=== PATIENT | male | born 1950 | race Caucasian/White ===

== ENCOUNTER → 2024-02-24 15:45 | Outpatient (CLI) | payer MEDICARE, SELFPAY | PROVIDERS: PCP Internal Medicine; Referring Provider Specialist; Visit Provider Specialist | DX: R97.20 Elevated prostate specific antigen [PSA] (principal) | CPT/HCPCS: 84153 ==

== ENCOUNTER → 2024-02-29 15:37 | Outpatient (CLI) | payer MEDICARE, SELFPAY | PROVIDERS: PCP Internal Medicine; Visit Provider Specialist | DX: N40.1 Benign prostatic hyperplasia with lower urinary tract symptoms (principal); N13.8 Other obstructive and reflux uropathy; R33.9 Retention of urine, unspecified; Z87.440 Personal history of urinary (tract) infections | CPT/HCPCS: 52000; 87086; 99215 ==

== ENCOUNTER → 2024-04-06 10:31 | Outpatient (CLI) | payer MEDICARE, SELFPAY | PROVIDERS: PCP Internal Medicine; Visit Provider Specialist | DX: Z87.440 Personal history of urinary (tract) infections (principal) | CPT/HCPCS: 87077; 87086 ==

== ENCOUNTER 2024-04-17 13:49 | Day surgery (SDC) | payer MEDICARE, SELFPAY ==
[2024-03-14 08:12] VITALS: BMI 34.4
[2024-04-17] VITALS (15 sets, daily range): BP systolic 69–132; BP diastolic 43–82; PULSE 65–91; RESP 10–19; TEMP 35.7–36.9; O2SAT 92–97; BMI 34.4
--- NOTE | 2024-04-17 | PATH_ITS ---
[facility] Accession Number: [id number] No. of containers..01 Tissue . 01 Material submitted: . prostate - PROSTATE CHIPS . 01 Diagnosis: A. PROSTATE CHIPS, EXCISIONAL BIOPSY: Benign prostatic stroma with benign epithelium and mild to moderate acute and chronic inflammation. MRV 04/24/2024 1347 Local . 01 Electronically signed: . Amparo Worthington MD, Pathologist NPI- [id number] . 01 Gross description: . Received in formalin with two identifiers and prostate chips, are multiple soares to rubbery soft tissue fragments admixed with hemorrhagic material weighing 29 grams and aggregating to 10.1 x 8.3 x 1.6 cm. No distinct lesions are identified. Vision Impaired Teacher sections are submitted in A1-A10. ([id number]) /MRV 04/19/2024 1845 Local . 01 Pathologist provided ICD-10: N40.1 . 01 CPT . 391960 Specimen Comment: A courtesy copy of this report has been sent to [phone] Performed at: [address] [address], [place], [place] [id number] MD Stevenson Mann MD Phone: [phone]
--- NOTE | 2024-04-17 14:36 | PM.PREOP ---
Pre-operative Note Interval Note History & Physical reviewed/Exam performed by Physician: Yes Changes to H&P: No
[2024-04-17] MEDS: AMPICILLIN/SULBACTAM 3 GM 3 GM in SODIUM CHLORIDE 0.9% 100 ML IV (15:00)
[2024-04-17] MEDS: GENTAMICIN 400 MG in SODIUM CHLORIDE 0.9% 100 ML 110 MG IV (15:05)
[2024-04-17 15:08] LABS: Hematocrit 41.8 % (41-53); Hemoglobin 13.9 g/dL (13.5-17.5)
[2024-04-17] MEDS: ACETAMINOPHEN IV 1,000 MG/100 ML VIAL 400 MG IV (15:13)
--- NOTE | 2024-04-17 15:19 | SUR.OPER ---
Lithotomy on padded OR bed, head on pillow, right arms secured on padded arm board at <90 degrees abduction, right arm padded and tucked. Legs secured in padded yellow fins stirrups.
[2024-04-17] MEDS: TRANEXAMIC ACID 1,000 MG in SODIUM CHLORIDE 0.9% 100 ML 200 MG IV ×2 (15:47→17:18)
--- NOTE | 2024-04-17 17:40 | P.OP_ITS ---
Operative Date/Time/Diagnoses Date of procedure: 04/17/24 Time of procedure: 17:40 Pre-op diagnosis: 1. Urinary retention. 2. BPH. 3. Failure of medical therapy and multiple voiding trials. Post-op diagnosis: same Procedure & Clinicians Procedure: 1. Cystoscopy/Aquablation. 2. Cystoscopy/Transurethral resection of prostate. 3. Transrectal ultrasound-diagnostic and guidance. A complexity modifier should be added to all aspects of this case due to the need for extended Transurethral resection of residual median lobe and elevated median bar of the prostate. Same procedure as scheduled: Yes Indications: 1. Urinary retention. 2. BPH. 3. Failure of medical therapy and multiple voiding trial attempts. Surgeon: Chris Rhodes Click Yes if Unassisted: Yes Anesthesia Type: General Operative Notes Findings: Unchanged compared to preoperative cystoscopy. Closure Type: not applicable Specimen(s): other (Prostate chips.) Applied: catheter (Twenty-four Citizen [place] 3 way hematuria catheter to sterile normal saline continuous bladder irrigation.) Estimated Blood Loss (mL): 50 Blood products transfused: none Procedure in detail: The patient was positioned supine and administered general anesthesia. The lower abdomen, genitalia, and groin were then prepped and draped in sterile fashion. The transrectal ultrasound probe was passed into the rectum and was adjusted and positioned for optimum visualization of the lower genitourinary tract. The hand piece with interval cystoscopy was then passed into the urethra and advanced proximally under direct and ultrasonographic guidance. The hand piece was positioned parallel and true with the transrectal ultrasound probe. Next utilizing both transverse and sagittal imaging and alternating between the 2 tony, jet location was identified and calibrated at the 3, 6, and 9 positions. Treatment depth cursors were then evaluated and established at the 3, 6, and 9 position in the transverse plane at the midpoint and wide as circumference diameter of the prostate near its midpoint. Next, in sagittal plane, critical anatomic locations were identified at the very proximal median lobe (extremely large volume median lobe protruding intravesically), bladder neck, mid prostate, and as far distal as the technology would allow (7 cm. This left an additional 1+ cm between the verumontanum in the external sphincter that would be untreated laterally. Aquablation was then commenced beginning at the proximal most intravesical median lobe and continuing through the program. A 2nd pass was then conducted after minor adjustments at 1, 2, 3, 4, and 5 positions in the sagittal midline plane. The the Aquablation Wand and handpiece were then removed. A transrectal ultrasound probe required removal in order to advance the resectoscope and under direct visualization. It was then realized in discovered that much of the median lobe had been directed leftward and remained on treated. At this point it was decided to conduct an extensive Transurethral resection of the remaining median lobe and proximal prostatic fossa. The mid and more distal portions of the prostate appeared to have good treatment effect from Aquablation and were left undisturbed. Resection was meticulous and painstaking. All tissue fragments and clot were then collected and submitted to pathology for routine gross and microscopic examination. The bladder was then partially filled the resectoscope was removed. A 24 Citizen [place] three-way hematuria catheter was then it positioned in the bladder with the assistance of a malleable catheter guide. The balloon was then inflated to 45 cc. Catheter was then hand irrigated with a catheter tip syringe to clarity. It was then connected to sterile normal saline CBI and gravity outflow drainage. The patient was then repositioned in supine in the catheter was secured to the inner thigh without tension. The patient was then awakened, transferred to [facility], then transferred to recovery in stable condition. Complications: none Post-operative Condition: stable Disposition: PACU Plan for aftercare: Admit to acute care.
[2024-04-17] MEDS: ePHEDrine 50 MG/ML VIAL 10 MG IV (18:16)
[2024-04-17] MEDS: LACTATED RINGERS 1,000 ML 125 ML IV (19:13)
--- NOTE | 2024-04-17 19:23 | PC.NURSE ---
Patient brought up from PACU to room 222, oriented to call light. Jayashree at bedside. Patient denies pain, states there is maybe a 1 discomfort at catheter site. CBI in progress from PACU, urine draining grade 2. Report given to glass cutter hand.
[2024-04-17 19:25] LABS: Alanine Aminotransferase 22 IU/L (<50); Albumin 3.4 g/dL (3.5-5.0); Albumin Globulin Ratio 1.3 (1.0-2.8); Alkaline Phosphatase 98 U/L (38-126); Aspartate Aminotransferase 25 IU/L (17-59); BUN Creatinine Ratio 18.8 (6-22); Bilirubin Total 0.6 mg/dL (0.2-1.3); Blood Urea Nitrogen 19 mg/dL (9-20); Calcium 8.1 mg/dL (8.4-10.2); Carbon Dioxide 27 mmol/L (22-32); Chloride 106 mmol/L (98-107); Estimated Glomerular Filt Rate > 60 mL/min (>60); Globulin 2.6 g/dL (1.7-4.1); Glucose 117 mg/dL (80-110); HEMOLYSIS < 15 (0-50); Potassium 4.6 mmol/L (3.4-5.1); Sodium 135 mmol/L (137-145)
[2024-04-17] MEDS: ACETAMINOPHEN 325 MG TABLET 650 MG PO (21:24)
[2024-04-18] MEDS: OXYCODONE IR 5 MG TABLET PO (02:38)
[2024-04-18 03:00] VITALS: BP 97/56; PULSE 65; RESP 16; TEMP 36.8; O2SAT 94
--- NOTE | 2024-04-18 08:34 | PC.NURSE ---
Addendum entered by Reese Paz R.N. 04/18/24 15:06: Patient tolerated ambulation well, with hernandez intact and draining. Patient is comfortable managing hernandez at home. Discharge instructions reviewed with patient and he has no further questions or concerns at this time. IV dc'd intact and patient escorted out via wc to home with his . Patient to schedule follow up with Dr. Rhodes's office. Original Note: Patient seen by Dr. Rhodes this morning, CBI stopped/plugged. Patient up to chair to have his breakfast. Encourage increased po intake, and ambulation this morning. Continue to monitor.
[2024-04-18] MEDS: ATORVASTATIN 20 MG TABLET 40 MG PO (09:17)
[2024-04-18] MEDS: TAMSULOSIN 0.4 MG CAPSULE PO (09:17)
[2024-04-18] MEDS: FINASTERIDE 5 MG TABLET PO (09:17)
[2024-04-18] MEDS: MULTIVITAMIN 1 TABLET 1 TAB PO (09:17)
[2024-04-18 09:18] VITALS: BP 92/64; PULSE 74
--- NOTE | 2024-04-18 10:39 | DIET.CONS ---
Dietary Consultation Note Admission Date: Assessment: 73 y M admitted after cystoscopy. Nutrition consulted for recent weight loss. Met w/ pt at bedside who reports 9-7 lb weight loss in 1 month (3%, non-severe) that he contributes to fluid loss after removal of gallbladder 1 month ago. Weight has remained stable at 211-213 lb past 2-3 weeks. Reports reduced intake of 1/2 to 3/4 the amount he would normally eat. Has been avoiding high fat foods per recc from doctor after cholecystectomy. Reports goal weight below 200 lb. Nutrition focused physical exam performed with no results. Areas assessed: temporalis, buccal/orbital fat pads, triceps, clavicle and scapula region, interosseous. Current diet recall: B-latte, breakfast burrito L-meat, carb, veg/stew D-sandwich and/or salad Ht: 170.18 cm Wt: 99.79 kg BMI: 34.4 UBW: 99.79 kg per pt 1 month ago, reports now 97.069 kg (-3%, non-severe) Last BM: () MNA: 11 Jorge Alberto Score: 22 Diet: 04/18/24 Breakfast General (Regular) Diet Diet Modifications: Food Texture: Level 7 - Regular Liquid Consistency: Level 0 - Thin Labs: Hgb 13.9 g/dL (13.5-17.5) 04/17/24 14:39 Hct 41.8 % (41-53) 04/17/24 14:39 Creatinine 1.01 mg/dL (0.66-1.25) 04/17/24 18:50 Nutrition Diagnosis: - Interventions: 1. Encouraged adequate intake, protein based snacks to support adequate intake prn EER: [id number] kcals (20-22 kcals per BMI) 80 g protein (1 g/kg of adjusted IBW) Monitoring/Evaluations: po intakes Electronically Signed by: Sandi Robles 04/18/24 10:39 Clinical Dietitian [address] [address]
--- NOTE | 2024-04-18 11:20 | CM.DANOTE ---
DCP Assessment Note Pt is a 73yo M here following Cystoscopy/Aquablation with Dr. Rhodes on 04.17.24. Pt is POD1. PCP Dr. Izaguirre [facility] and Medicare FLAME GOUGER reviewed EMR. Per RN report, no anticipated/obvious CM needs. FLAME GOUGER entered room and introduced self and role. Pt lives in [place] with spouse Jayashree ([phone]). Pt has been OOB ambulating halls with the POLYSOM TECH and is normally active/indep/drives at baseline, has been putting in a new patio in his backyard. Pt reports Meagan told him likely dc later this afternoon. on way now to assist with transport. Pt denies and CM/DCP/SW needs at this time. P: anticipate dc later today with spouse support and no CM needs. CM team will follow as needed. KALYAN Tobar Discharge Planning/Care Management CM Discharge Assessment Start: 04/18/24 11:18 Freq: Status: Active Protocol: Document 04/18/24 11:19 SL (Rec: 04/18/24 11:20 [id number]) Discharge Planning Assessment Assigned Cue Selector KALYAN Isaacs DPOA/Assigned Designee Name Jayashree, spouse Contact Information [phone] Advance Directives? No History Provided By Patient,Family Member Prior Living Arrangements House Household Members spouse Type of transporation used prior to Drives own vehicle admit Independent with ADL's Yes Is patient alert and oriented? Yes Discharge Plan Home Transportation Arrangement spouse in POV Referrals Initiated None needed Whiteboard Updated in Patient Room with Yes name and ext. # of Cue Selector Review Status In Process Please Provide Date Initial DC 04/18/24 Assessment Was Performed Next Review Type Continued Stay Review Pre-Anesthesia Assessment Start: 03/14/24 08:12 Freq: Status: Complete Protocol: Document 03/14/24 08:12 CAB (Rec: 03/14/24 08:17 CAB [id number]) Pre-Anesthesia Assessment Patient Information Reviewed Via Chart Review Primary Care Provider Alfred Izaguirre Seen Specialist in Last 12 Months Yes Specialist Seen Urologist Primary Language Welsh Roll Out Manager Required No Height 170.18 cm Weight 99.79 kg Body Mass Index (BMI) 34.4 Barriers to Learning None Anesthesia Review Requested No Dispatch Coordinator No alcohol intake current alcohol intake frequency a few times a week Smoking Status Former smoker Tobacco type pipe,cigars how long ago did patient quit smoking 1984 Patient is completely paralyzed or No completely immobile Mental Status Oriented to own ability Is patient on oxygen? No Hx Sleep Apnea No Currently Taking a Beta Alysia No Anti-Coagulant Therapy No Cardiac Testing No Hx Pacemaker/ICD No Pacemaker Rep Required? No Cardiac Clearance Received No Bladder Pattern Retention Urinary Catheter Present Yes: 24f Coude' Contreras Diabetes No Presence of External or Internal Medical Yes: Contreras cath Devices Marital Status Lives With spouse Patient Discharge Plan Description Return Home
--- NOTE | 2024-04-18 13:41 | PM.DS.1 ---
History of Present Illness History of Present Illness Date Patient Seen: 04/18/24 Time Patient Seen: 07:10 Chief complaint: OPB Narrative: Timur is a 73-year-old gentleman that was admitted on 04/17/2024 for planned Aquablation for relief of bladder outlet obstruction and urinary retention since October of 2023. Discharge Providers Provider Date of admission: 04/17/2024 Discharge Date: 04/18/24 Primary care physician: Alfred Izaguirre MD Consults: 04/17/24 19:32 Consult to Dietitian, Adult Routine Comment: Reason For Exam: recent weight loss Discharge provider: Chris Rhodes MD Summary Hospital Course Discharge Diagnosis: 1. urinary retention. 2.bladder outlet obstruction. Hospital Course: Patient was admitted on 04/17/2024 and underwent Aquablation/Transurethral resection of prostate under general anesthetic. His postop course was unremarkable in that he tolerated a general diet, was able to ambulate and transfer without assistance, and tolerating a general diet within the 1st 24 hours postoperatively. Following placement of inflow catheter plug and discontinuation of continuous bladder irrigation, urine output continued to demonstrate a grade 1 level of hematuria without clots. In the afternoon of 04/18/2024 the patient was stable for discharge. Exam Vital Signs (past 8 hours): - 04/18/24 08:00 04/18/24 09:18 Pulse Rate 74 Blood Pressure 92/64 Oxygen Delivery Method Room Air Oxygen Delivery Method Room Air Oxygen Flow Rate 0 Narrative Exam Narrative: Patient was sitting upright in bedside chair eating his lunch. He was in no acute distress. Contreras catheter outflow is light pink tinged straw without clots. Objective Labs 04/17/24 14:39 04/17/24 18:50 Labs: Laboratory Results - last 24 hr 04/17/24 04/17/24 14:39 18:50 Hgb 13.9 Hct 41.8 Sodium 135 L Potassium 4.6 Chloride 106 Carbon Dioxide 27 BUN 19 Creatinine 1.01 Estimated GFR > 60 BUN/Creatinine Ratio 18.8 Glucose 117 H Calcium 8.1 L Total Bilirubin 0.6 AST 25 ALT 22 Alkaline Phosphatase 98 Total Protein 6.0 L Albumin 3.4 L Globulin 2.6 Albumin/Globulin Ratio 1.3 Blood Type A Positive Antibody Screen Negative [facility] Medical History HTN (hypertension) Contreras catheter in place (02/2024) History of UTI BPH w urinary obs/LUTS Urinary retention Surgical History Hx of cystoscopy (10/18/23) Social History household members: spouse Smoking Status: Former smoker alcohol intake: current Discharge Assessment & Plan Assessment and Plan Assessment: 1. Stable postoperative day 1 status post Aquablation/Transurethral resection of prostate. 2. Indwelling Contreras catheter. 3. Surgical pathology pending. Plan of Treatment: 1. Discharge home today with indwelling catheter. 2. Provide catheter care and use instruction. 3. Schedule supervise outpatient voiding trial in the Urology Clinic 04/20/2024. 4. Follow-up surgical pathology when final telephonically. Discharge Plan Discharge Plan Patient Disposition: Home Provider Discharge Comment: Please contact the urology clinic to schedule your postop follow-up appointment. Discharge orders & Medications Discharge Orders: Discharge (Order); Ordered 04/18/24 Ordered By: Chris Rhodes Prescriptions: New ciprofloxacin HCl [Cipro] 250 mg tablet 250 mg PO TID Qty: 15 0RF Continued multivitamin Tablet 1 tab PO DAILY lisinopril 20 mg Tablet 20 mg PO BID spironolactone 25 mg Tablet 25 mg PO BID tamsulosin 0.4 mg Capsule 0.4 mg PO DAILY finasteride 5 mg Tablet 5 mg PO DAILY rosuvastatin 20 mg Tablet 20 mg PO DAILY PreserVision AREDS-2 250-90-40-1 mg Capsule 1 tab PO DAILY Discontinued oxybutynin chloride 5 mg tablet extended release 24hr 5 mg PO DAILY Follow up/Referrals: Alfred Izaguirre MD [Primary Care Provider] - Chris Rhodes MD [Physician] - (please contact Dr Rhodes's office to schedule your follow up appointment ) Diet/Activity/Treatments Diet: Diet as Tolerated Activity: Refrain from lifting objects greater than 15 lb x 4 weeks. Catheter: 2-way Contreras Catheter comment: Large bag in-home and during night. Leg bag when out of home. Skin/Wound/Dressing Care Report to your healthcare provider any signs of infection, such as:: chills, fever, night sweats, increased pain and unusual drainage Visit Report/Discharge Packet Instructions: How to Care for Your Contreras Catheter -- Male, DI for Transurethral Resection of the Prostate Stand Alone Forms: Surgery Discharge Discharge Data Primary Care Provider: Alfred Izaguirre Attending Provider: Chris Rhodes
[2024-04-18] MEDS: ACETAMINOPHEN 325 MG TABLET 650 MG PO (13:53)
== END 2024-04-18 14:35 | disposition home or self-care (01) ==
LOC: OR 13:53 → AC 19:05
PROVIDERS: Anesthesiology; PCP Internal Medicine; Referring Provider Specialist; Visit Provider Specialist
PROC: 0VT08ZZ Resection of Prostate, Via Natural or Artificial Opening Endoscopic (ICD-10-PCS; CPT 0421T; principal; 2024-04-17 15:15)
DX: N40.1 Benign prostatic hyperplasia with lower urinary tract symptoms (principal); R33.9 Retention of urine, unspecified
CPT/HCPCS: 0421T; 80053; 85014; 85018; 86850; 86900; 86901; C2596; J0136; J0295; J1100; J1170; J2250; J2405; J2704; J3010; J3490

== ENCOUNTER → 2024-04-19 16:28 | Outpatient (CLI) | payer MEDICARE, SELFPAY ==
[2024-04-17 19:05] VITALS: BMI 34.4
== END ==
PROVIDERS: PCP Internal Medicine; Visit Provider Specialist
DX: N40.1 Benign prostatic hyperplasia with lower urinary tract symptoms (principal); N13.8 Other obstructive and reflux uropathy; Z87.440 Personal history of urinary (tract) infections
CPT/HCPCS: 87086

== ENCOUNTER → 2024-04-25 15:03 | Outpatient (CLI) | payer MEDICARE, SELFPAY ==
[2024-04-17 19:05] VITALS: BMI 34.4
== END ==
PROVIDERS: PCP Internal Medicine; Visit Provider Specialist
DX: Z87.440 Personal history of urinary (tract) infections (principal)
CPT/HCPCS: 87086

== ENCOUNTER → 2024-05-02 11:10 | Outpatient (CLI) | payer MEDICARE, SELFPAY ==
[2024-04-17 19:05] VITALS: BMI 34.4
== END ==
PROVIDERS: PCP Internal Medicine; Visit Provider Specialist
DX: N40.1 Benign prostatic hyperplasia with lower urinary tract symptoms (principal); N13.8 Other obstructive and reflux uropathy
CPT/HCPCS: 87086

== ENCOUNTER → 2024-05-05 15:26 | Outpatient (CLI) | payer MEDICARE, SELFPAY ==
[2024-05-05 14:26] VITALS: BMI 34.4
== END ==
PROVIDERS: PCP Internal Medicine; Visit Provider Specialist
DX: Z87.440 Personal history of urinary (tract) infections (principal)
CPT/HCPCS: 87086

== ENCOUNTER → 2024-06-01 14:02 | Outpatient (CLI) | payer MEDICARE, SELFPAY ==
[2024-05-05 14:26] VITALS: BMI 34.4
== END ==
PROVIDERS: PCP Internal Medicine; Visit Provider Specialist
DX: N40.1 Benign prostatic hyperplasia with lower urinary tract symptoms (principal); N13.8 Other obstructive and reflux uropathy; R33.9 Retention of urine, unspecified; Z87.440 Personal history of urinary (tract) infections
CPT/HCPCS: 87086